=== PATIENT | female | born 1955 | race Caucasian/White ===

== ENCOUNTER 2021-03-28 18:25 | Emergency (ER) | payer OTHER ==
[~2021-03-28] VITALS: Ht 157.5 cm; Wt 60.8 kg
[~2021-03-28 18:25] MED LIST: ALPR.5 PO; ASPI325; AZIT500 PO; Advil200 M1 PO; BENADRYL25 MG PO; CANNABIS PO; CEPH500 PO; CYCL10; CYCL10 PO; DIAZ5 PO; DIPH50 PO; HYDACE5 PO; HYDCOR1TC TOP; HYDMOR2 PO; HYDR.5TC TOP; IBUP600 PO; IBUP800 PO; IBUPROFEN; KETO10 PO; MELO7.5; MSM1000; NAPR220; NAPR220 PO; NAPR500 PO; NAPR550 PO; OXYACE5T PO; PROACE100 PO; PROM25; PROM25 PO; Percocet 5-3251 EACH PO; RANI150 PO; RXHYDMOR2 PO; RXPROACE PO; RXPROM25 PO; SULTRIDS PO; TOCO1000; ULTRA-LIGHT RO1 EACH MC; Ultram50 MG PO; Valium5 MG PO; Xanax0.5 MG PO; Xanax1 MG PO; [UNRECOGNIZED DRUG - REMARK]; [UNRECOGNIZED DRUG - REMARK]
== END 2021-03-28 19:15 | disposition left against medical advice (07) ==
LOC: ER 18:25
DX: R51.9 Headache, unspecified (principal); Z53.21 Procedure and treatment not carried out due to patient leaving prior to being seen by health care provider
CPT/HCPCS: 71101; 99283-25

== ENCOUNTER 2021-03-29 10:27 | Emergency (ER) | payer OTHER ==
[~2021-03-29] VITALS: Ht 157.5 cm; Wt 61.2 kg
== END 2021-03-29 10:42 | disposition home or self-care (01) ==
LOC: ER 10:27
DX: S20.01XA Contusion of right breast, initial encounter (principal); S20.211A Contusion of right front wall of thorax, initial encounter; S00.12XA Contusion of left eyelid and periocular area, initial encounter; Z88.5 Allergy status to narcotic agent; Z88.8 Allergy status to other drugs, medicaments and biological substances; Z87.891 Personal history of nicotine dependence; Y04.2XXA Assault by strike against or bumped into by another person, initial encounter
CPT/HCPCS: 99282

== ENCOUNTER 2023-07-05 22:09 | Emergency (ER) | payer SELFPAY ==
[~2023-07-05] VITALS: Ht 157.5 cm; Wt 63.5 kg
[2023-07-05 22:22] VITALS: BP 192/92
== END 2023-07-05 23:39 | disposition home or self-care (01) ==
LOC: ER 22:09
DX: S05.01XA Injury of conjunctiva and corneal abrasion without foreign body, right eye, initial encounter (principal); X58.XXXA Exposure to other specified factors, initial encounter; Z88.5 Allergy status to narcotic agent; Z88.8 Allergy status to other drugs, medicaments and biological substances; Z79.899 Other long term (current) drug therapy; M19.90 Unspecified osteoarthritis, unspecified site; Z87.891 Personal history of nicotine dependence
CPT/HCPCS: 99283; A9270

== ENCOUNTER 2023-09-09 08:52 | Emergency (ER) | payer SELFPAY ==
[~2023-09-09] VITALS: Ht 154.9 cm; Wt 59.0 kg
[2023-09-09] MEDS ORDERED: IBUP600 PO (10:16)
[2023-09-09] MEDS ORDERED: LIDO700A20 TOP (10:16)
[2023-09-09 10:35] VITALS: BP 124/73
[2023-09-09] MEDS ORDERED: ONDA4ODT MM (10:47)
[2023-09-09] MEDS ORDERED: Norco 5-325 Ta1 EACH PO (10:47)
== END 2023-09-09 10:50 | disposition home or self-care (01) ==
LOC: ER 08:52
DX: S22.41XA Multiple fractures of ribs, right side, initial encounter for closed fracture (principal); M19.90 Unspecified osteoarthritis, unspecified site; Z87.891 Personal history of nicotine dependence; Z79.899 Other long term (current) drug therapy; Z88.5 Allergy status to narcotic agent; Z88.8 Allergy status to other drugs, medicaments and biological substances; W10.9XXA Fall (on) (from) unspecified stairs and steps, initial encounter
CPT/HCPCS: 71101; 99283-25; A9270